=== PATIENT | female | born 1995 | race Caucasian/White ===

== ENCOUNTER 2020-01-12 15:01 | Emergency (ER) | payer SELFPAY ==
[2020-01-12 15:23] VITALS: BP 140/84; PULSE 85; RESP 14; TEMP 36.9; O2SAT 97; BMI 30.2
== END 2020-01-12 17:29 | disposition left against medical advice (07) ==
PROVIDERS: Emergency Provider Family Medicine
DX: Z53.21 Procedure and treatment not carried out due to patient leaving prior to being seen by health care provider (principal)
CPT/HCPCS: 99281

== ENCOUNTER 2020-01-12 22:06 | Emergency (ER) | payer SELFPAY ==
[2020-01-12 22:35] LABS: Basophils # 0.1 10^3/uL (0.0-0.1); Basophils % 0.3 %; Eosinophils % 0.1 %; Hematocrit 51.3 % (37.0-47.0); Hemoglobin 17.4 g/dL (11.5-15.3); Lymphocytes # 1.2 10^3/uL (0.8-4.8); Lymphocytes % 8.2 %; Mean Corpuscular HGB Conc 33.9 g/dL (30.0-36.0); Mean Corpuscular Hemoglobin 30.3 pg (28.0-34.0); Mean Corpuscular Volume 89.2 fL (81-99); Mean Platelet Volume 12.5 fL (7.4-10.4); Monocytes # 0.2 10^3/uL (0.2-0.9); Monocytes % 1.5 %; Neutrophils # 13.5 10^3/uL (1.8-7.7); Neutrophils % 89.5 %; Nucleated Red Blood Cells % 0 %; Platelet Count 260 10^3/cmm (130-400); Red Blood Count 5.75 10^6/uL (4.1-5.3); White Blood Count 15.1 10^3/uL (4.0-10.0)
[2020-01-12 22:47] VITALS: BP 157/94; PULSE 62; RESP 18; TEMP 36.4; O2SAT 97; BMI 30.1
[2020-01-12 22:57] LABS: Alanine Aminotransferase 38 U/L (0-33); Albumin Level 5.6 g/dL (3.5-5.2); Alkaline Phosphatase 71 IU/L (35-105); Aspartate Amino Transferase 24 U/L (0-32); Blood Urea Nitrogen 11 mg/dL (6-20); Calcium 11.1 mg/dL (8.5-10.5); Carbon Dioxide 23 mmol/L (22-29); Chloride 99 mmol/L (98-107); Creatinine Clr Calc Pharmacy 150.1169; Globulin 3.4 g/dL (1.3-4.6); Glomerular Filtration Rate 102.8 mL/min (90-130); Glucose 146 mg/dL (65-115); Lipase 14 U/L (13-60); Osmolality Calculated 289 mOsm/kg (285-295); Sodium 140 mmol/L (136-145); Total Bilirubin 1.6 mg/dL (0.15-1.2)
[2020-01-12 23:13] LABS: HCG, Serum Qual Negative (Negative)
--- NOTE | 2020-01-12 23:19 | CTR_ITS ---
PROCEDURE INFORMATION: Exam: CT Abdomen And Pelvis With Contrast Exam date and time: 01/12/2020 11:40 PM Age: 24 years old Clinical indication: Abdominal pain; Generalized; Prior surgery; Surgery type: Cholecystectomy; Additional info: Abd pain TECHNIQUE: Imaging protocol: Computed tomography of the abdomen and pelvis with intravenous contrast. Radiation optimization: All CT scans at this facility use at least one of these dose optimization techniques: automated exposure control; mA and/or kV adjustment per patient size (includes targeted exams where dose is matched to clinical indication); or iterative reconstruction. Contrast material: OMNI 300; Contrast volume: 95 ml; Contrast route: INTRAVENOUS (IV); COMPARISON: US gall bladder [id number] 11/14/2015 3:38 AM RADIATION DOSE METRICS: Total DLP (mGy-cm): 2095.14 FINDINGS: Lungs: Lung bases are clear. Liver: The liver is normal. Gallbladder and bile ducts: The gallbladder is absent. Pancreas: The pancreas is unremarkable. Spleen: The spleen is unremarkable. Adrenals: The adrenal glands are unremarkable. Kidneys and ureters: The kidneys are unremarkable. No hydronephrosis or stones. No ureteral dilation. Stomach and bowel: The stomach is unremarkable. The small bowel is nondilated. The colon is unremarkable. Appendix: The appendix is normal. Intraperitoneal space: There is no free air or significant intraperitoneal free fluid. Vasculature: The aorta is unremarkable. There is no aneurysm. Lymph nodes: There is no lymphadenopathy in the retroperitoneum, mesentery, pelvis or inguinal regions. Bladder: The urinary bladder is unremarkable. Reproductive: The uterus is unremarkable. There is no adnexal mass or large cyst. Bones/joints: Bones are unremarkable. Soft tissues: The abdominal wall is intact. CT/CT abdomen pelvis w con* [id number] IMPRESSION: No pathologic findings. Radiation Dose CTDIVOL = (mGy): DLP = 2095.14 (mGy-cm)
--- NOTE | 2020-01-12 23:28 | W.ED.ABDPA2 ---
HPI - Abdominal Pain General: Chief Complaint: Abdominal Pain Stated Complaint: abd pain, n/v Time Seen by Provider: 01/12/20 23:01 Source: patient Mode of arrival: ambulatory Limitations: no limitations History of Present Illness: HPI narrative: 24-year-old female who states she has a history of chronic abdominal pain over the last 3 years. Patient states that the pain today is worse than typical. She states it is mainly in her lower abdomen and rates it a 10 out of 10. She denies any fever or vomiting. She does not believe she is . MD elicited complaint: abdominal pain Onset (ago): hour(s) Pain Consistency: constant Location: Diffuse Severity: severe Relieving factors: nothing Associated Symptoms: Denies chills, dysuria and fever(s) Review of Systems Const: Denies: fever(s), chills, body aches or change in appetite Eyes: Denies: blurry vision or eye discomfort ENMT: Denies: throat pain or dental pain Card: Denies: chest pain Resp: Denies: dyspnea GI: Reports: abdominal pain : Denies: dysuria Musc: Denies: neck pain or back pain Skin/Breast: Denies: rash Neuro: Denies: headache(s) Psych: Denies: depression Eder/Lymph: Denies: easy bruising All/Imm: Denies: urticaria Physical Exam Const: COMMON NORMALS: patient oriented x3 and healthy appearing GENERAL APPEARANCE: in distress HENMT: COMMON NORMALS: normocephalic and atraumatic HEAD & SCALP: normocephalic and atraumatic Eye: COMMON NORMALS: Equal, round and reactive pupils present and EOMs intact bilaterally PUPIL: Yes Equal, round and reactive pupils present Neck/C-Spine: COMMON NORMALS: full ROM and supple Chest: COMMONS NORMALS: normal inspection of the chest and normal palpation of entire chest wall Resp: COMMON NORMALS: normal respiratory effort, No retractions, No use of accessory muscles and clear to auscultation bilaterally AUSCULTATION: clear to auscultation bilaterally Cardio: COMMON NORMALS: regular rate, regular rhythm and No murmurs present (Cardio) RATE: regular rate RHYTHM: regular rhythm GI: COMMON NORMALS: Normal to inspection, nondistended, normoactive bowel sounds present, Soft to palpation and no masses PALPATION: Yes Soft to palpation OTHER: Diffuse tenderness Extremity: COMMON NORMALS: normal to inspection and full ROM Neuro: COMMON NORMALS: patient oriented x3, moves all extremities and no focal motor deficits Psych: COMMON NORMALS: mental status grossly normal, Normal thought process present and cooperative THOUGHT PROCESS: Normal thought process present Skin: COMMON NORMALS: no rashes or lesions noted and no wounds GENERAL SKIN EXAM: no rashes or lesions noted Course Vital Signs: Vital signs: Vital Signs Temperature 97.5 F L 01/12/20 22:47 Pulse Rate 58 L 01/13/20 02:07 Respiratory Rate 16 01/13/20 02:07 Blood Pressure 124/72 01/13/20 02:07 Pulse Oximetry 98 01/13/20 02:07 MDM - Abdominal Pain MDM Narrative: Medical decision making narrative: Susana presents here with abdominal pain that is chronic in nature. Patient's CT scan and lab work here is normal. Patient's pain is much improved. She is stable for discharge and is to follow-up with primary care doctor in 3 to 5 days return if worsening. Patient prescribed Bentyl for home. Lab Data: Labs: Lab Results 01/12/20 01/12/20 01/12/20 Range/Units 22:18 22:18 22:18 WBC 15.1 H (4.0-10.0) 10^3/ uL RBC 5.75 H (4.1-5.3) 10^6/u L Hgb 17.4 H (11.5-15.3) g/dL Hct 51.3 H (37.0-47.0) % MCV 89.2 (81-99) fL MCH 30.3 (28.0-34.0) pg MCHC 33.9 (30.0-36.0) g/dL RDW 13.0 (12.1-15.1) % Plt Count 260 (130-400) 10^3/c mm MPV 12.5 H (7.4-10.4) fL Neut % (Auto) 89.5 % Lymph % (Auto) 8.2 % [place] % (Auto) 1.5 % Eos % (Auto) 0.1 % Baso % (Auto) 0.3 % Neut # (Auto) 13.5 H (1.8-7.7) 10^3/u L Lymph # (Auto) 1.2 (0.8-4.8) 10^3/u L [place] # (Auto) 0.2 (0.2-0.9) 10^3/u L Eos # (Auto) 0.0 (0.0-0.8) 10^3/u L Baso # (Auto) 0.1 (0.0-0.1) 10^3/u L Nucleated RBC % (a uto) 0 % Nucleated RBCs # 0.0 /100WBC Sodium 140 (136-145) mmol/L Potassium 4.0 (3.5-5.1) mmol/L Chloride 99 (98-107) mmol/L Carbon Dioxide 23 (22-29) mmol/L Anion Gap 22.0 H (5-19) BUN 11 (6-20) mg/dL Creatinine 0.7 (0.5-0.9) mg/dL GFR Calculation 102.8 (90-130) mL/min Glucose 146 H (65-115) mg/dL Calculated Osmolal ity 289 (285-295) mOsm/k g Calcium 11.1 H (8.5-10.5) mg/dL Total Bilirubin 1.6 H (0.15-1.2) mg/dL AST 24 (0-32) U/L ALT 38 H (0-33) U/L Alkaline Phosphata se 71 (35-105) IU/L Total Protein 9.0 H (6.6-8.7) g/dL Albumin 5.6 H (3.5-5.2) g/dL Globulin 3.4 (1.3-4.6) g/dL Lipase 14 (13-60) U/L HCG, Qual Negative (Negative) Imaging Data ^: CT Abd/Pel: Attestation: I personally reviewed and interpreted this imaging study as follows: Radiologist's impression: [address] [address] [address] Scan Report Signed Patient: Susana Doyle Unit #: [id number] : 1995 Age/Sex: 24 / F ADM Date: 01/12/20 Loc: ER Room/Bed: Attending Dr: Ordering Provider/Ordering MD: Gerardo Damico MD Date of Service: 01/12/20 Procedure(s): CT abdomen pelvis w con* [id number] Accession Number(s): [id number] Report Number: [id number] PROCEDURE INFORMATION: Exam: CT Abdomen And Pelvis With Contrast Exam date and time: 01/12/2020 11:40 PM Age: 24 years old Clinical indication: Abdominal pain; Generalized; Prior surgery; Surgery type: Cholecystectomy; Additional info: Abd pain TECHNIQUE: Imaging protocol: Computed tomography of the abdomen and pelvis with intravenous contrast. Radiation optimization: All CT scans at this facility use at least one of these dose optimization techniques: automated exposure control; mA and/or kV adjustment per patient size (includes targeted exams where dose is matched to clinical indication); or iterative reconstruction. Contrast material: OMNI 300; Contrast volume: 95 ml; Contrast route: INTRAVENOUS (IV); COMPARISON: US gall bladder [id number] 11/14/2015 3:38 AM RADIATION DOSE METRICS: Total DLP (mGy-cm): 2095.14 FINDINGS: Lungs: Lung bases are clear. Liver: The liver is normal. Gallbladder and bile ducts: The gallbladder is absent. Pancreas: The pancreas is unremarkable. Spleen: The spleen is unremarkable. Adrenals: The adrenal glands are unremarkable. Kidneys and ureters: The kidneys are unremarkable. No hydronephrosis or stones. No ureteral dilation. Stomach and bowel: The stomach is unremarkable. The small bowel is nondilated. The colon is unremarkable. Appendix: The appendix is normal. Intraperitoneal space: There is no free air or significant intraperitoneal free fluid. Vasculature: The aorta is unremarkable. There is no aneurysm. Lymph nodes: There is no lymphadenopathy in the retroperitoneum, mesentery, pelvis or inguinal regions. Bladder: The urinary bladder is unremarkable. Reproductive: The uterus is unremarkable. There is no adnexal mass or large cyst. Bones/joints: Bones are unremarkable. Soft tissues: The abdominal wall is intact. CT/CT abdomen pelvis w con* [id number] IMPRESSION: No pathologic findings. Discharge Plan Discharge Patient Disposition: Home, Self-Care Clinical Impression: Abdominal pain Qualifiers: Abdominal location: generalized Qualified Code(s): R10.84 - Generalized abdominal pain Condition: Stable Prescriptions: New ondansetron 4 mg tablet,disintegrating 4 mg PO Q6H PRN (Reason: nausea and vomiting) Qty: 14 RF: 0 dicyclomine 20 mg tablet 20 mg PO BID PRN (Reason: abdominal pain) Qty: 20 RF: 0 Discharge Orders: Discharge Order (Routine); Ordered 01/13/20 Ordered By: Gerardo Damico Discharge Diet: Advance as tolerated Discharge Activity: Resume usual activity Patient Instructions: Abdominal Pain (ED) Discharge Date/Time: 01/13/20 02:12 Coding Level of Care Code ED Quill Winder for Pranav Fwdeborah Exam Comprehensive
[2020-01-13] MEDS: metoclopramide 5 mg/mL SDV 2 mL 10 MG IVP (00:16)
[2020-01-13] MEDS: HYDROmorphone 1 mg/mL INJ 1 mL IVP (00:16)
[2020-01-13] MEDS: diphenhydrAMINE 50 mg/mL SDV 1mL IVP (00:16)
[2020-01-13 00:31] VITALS: BP 144/88; PULSE 52; RESP 16; O2SAT 96
[2020-01-13] MEDS: iohexol 300 mg/mL 100 mL Btl IV (00:38)
[2020-01-13 02:07] VITALS: BP 124/72; PULSE 58; RESP 16; O2SAT 98
== END 2020-01-13 02:12 | disposition home or self-care (01) ==
PROVIDERS: Emergency Provider Emergency Medicine
DX: R10.84 Generalized abdominal pain (principal)
CPT/HCPCS: 12345; 36415; 74177; 80053; 83690; 84703; 85025; 96374; 96375; 99283; J1170; J1200; J2765; Q9967

== ENCOUNTER 2020-01-15 07:39 | Emergency (ER) | payer SELFPAY ==
[2020-01-15 07:45] VITALS: BP 157/84; PULSE 57; RESP 20; TEMP 36.7; O2SAT 95; BMI 30.1
[2020-01-15 07:50] VITALS: BP 140/87; PULSE 53; RESP 18; O2SAT 95
--- NOTE | 2020-01-15 07:56 | ED_ITS ---
HPI - Abdominal Pain General: Chief Complaint: Abdominal Pain Stated Complaint: ABD PAIN Time Seen by Provider: 01/15/20 07:52 History of Present Illness: HPI narrative: Patient is a 24-year-old female comes to the ED with abdominal pain nausea and vomiting. Patient was seen here a couple days ago on January [address] A CT was performed and showed no acute findings and patient was discharged with a prescription for Bentyl and Zofran. Patient reports abdominal pain is not gotten better. Abdominal pain is all throughout the abdomen, but most of pain is in epigastric and RUQ. Pain is rated a 10 out of 10. Patient says she has been nauseous and vomiting multiple times a day for the 4 days. Denies any blood in the vomit. Patient states she is also had some diarrhea but denies any blood in the diarrhea. She says hot showers provide some relief. Patient says that she has been a daily marijuana smoker for years but just recently stopped about 4 days ago. Associated Symptoms: Reports diarrhea, nausea and vomiting; Denies chills, constipation, dysuria, fever(s), hematochezia and hematuria Related Data: Date of Last Menstrual Period: 01/14/20 Review of Systems Const: Denies: fever(s), chills or fatigue Eyes: Denies: change in vision or eye discomfort ENMT: Denies: throat pain, odynophagia, nasal discharge or nasal congestion Card: Denies: chest pain, palpitations, edema, swelling of feet/ankles, dyspnea on exertion or orthopnea Resp: Denies: dyspnea, productive cough or non-productive cough GI: Reports: abdominal pain, nausea, vomiting and diarrhea; Denies: constipation or hematochezia : Denies: flank pain, dysuria or hematuria Musc: Denies: neck pain, back pain or extremity swelling Skin/Breast: Denies: rash or new lesions Neuro: Denies: headache(s), numbness in extremities or weakness in extremities PFSH ED PFSH: Social History Smoking and tobacco status: current every day smoker Female Reproductive History: Date of last menstrual period: 01/14/20 Physical Exam Const: COMMON NORMALS: patient oriented x3 and alert GENERAL APPEARANCE: cooperative, in distress (Patient was crying and sobbing all throughout history and physical exam.) and well hydrated HENMT: COMMON NORMALS: normocephalic HEAD & SCALP: normocephalic MOUTH: Normal oral and palatal mucosa present (Mucous membranes are moist ) THROAT: posterior oropharynx normal and uvula midline Eye: COMMON NORMALS: Equal, round and reactive pupils present PUPIL: Yes Equal, round and reactive pupils present Neck/C-Spine: COMMON NORMALS: supple GENERAL: Yes normal visual inspection Resp: COMMON NORMALS: normal respiratory effort, No retractions, No use of accessory muscles and clear to auscultation bilaterally AUSCULTATION: clear to auscultation bilaterally Cardio: COMMON NORMALS: regular rate, regular rhythm, S1 normal heart sound present, S2 normal heart sound present, No gallops present (Cardio), No clicks present (Cardio), No murmurs present (Cardio) and Peripheral pulses 2+ throughout RATE: regular rate RHYTHM: regular rhythm HEART SOUNDS: S1 normal heart sound present and S2 normal heart sound present PERIPHERAL PULSES: Peripheral pulses 2+ throughout GI: COMMON NORMALS: Normal to inspection, nondistended, normoactive bowel sounds present, Soft to palpation and no masses PALPATION: Yes Soft to palpation and Yes Tenderness to palpation present (GI) Details: other (Mild tenderness throughout abdomen.) : COMMON NORMALS: Yes no CVA tenderness BLADDER/KIDNEY EXAM: Yes no CVA tenderness Back/Pelvis: COMMON NORMALS: no CVA tenderness Extremity: COMMON NORMALS: normal to inspection and no pedal edema Neuro: COMMON NORMALS: patient oriented x3 SENSORIUM/ORIENTATION: Yes alert GAIT: Yes Normal gait present Skin: COMMON NORMALS: no rashes or lesions noted GENERAL SKIN EXAM: no rashes or lesions noted and dry skin Course Reevaluation(s): Reevaluation #1: After IV fluids, Reglan, Benadryl and Dilaudid, patient symptoms greatly improved and she was ready for discharge. Patient requested PCP referral, since new in town. Vital Signs: Vital signs: Vital Signs Temperature 98.1 F 01/15/20 07:45 Pulse Rate 62 01/15/20 10:18 Respiratory Rate 16 01/15/20 10:18 Blood Pressure 109/58 01/15/20 10:18 Pulse Oximetry 96 01/15/20 10:18 MDM - Abdominal Pain MDM Narrative: Medical decision making narrative: Patient is a 24-year-old female comes to the ED with abdominal pain nausea and vomiting. Patient was seen here a couple days ago on January [address] was performed and showed no acute findings and patient was discharged with a prescription for Bentyl and Zofran. Patient reports abdominal pain is not gotten better. Abdominal pain is all throughout the abdomen, but most of pain is in epigastric and RUQ. Patient admits to be a chronic marijuana smoker and she says that some of her nausea and vomiting symptoms improved when she takes hot showers. White blood cell count-16, CMP and UA were unremarkable. Lipase 16 and hCG serum negative. Ultrasound abdomen RUQ showed no acute findings. Patient symptoms improved with IV fluids, Reglan and Dilaudid. Patient requested a PCP referral so I put in an order with case management. Patient told to continue taking previously prescribed medications and I also gave her an additional prescription for Zofran to take as needed once previous prescription runs out. Drink plenty of fluids and stay hydrated. I discussed with patient about cessation of marijuana to help reduce symptoms. Patient understood and agreed with plan. Lab Data: Attestation: I reviewed the patient's lab results. Labs: Lab Results 01/15/20 01/15/20 01/15/20 Range/Units 08:10 08:10 08:10 WBC 16.0 H (4.0-10.0) 10^3/ uL RBC 5.79 H (4.1-5.3) 10^6/u L Hgb 17.0 H (11.5-15.3) g/dL Hct 51.2 H (37.0-47.0) % MCV 88.4 (81-99) fL MCH 29.4 (28.0-34.0) pg MCHC 33.2 (30.0-36.0) g/dL RDW 12.6 (12.1-15.1) % Plt Count 242 (130-400) 10^3/c mm MPV 13.1 H (7.4-10.4) fL Neut % (Auto) 71.8 % Lymph % (Auto) 21.7 % [place] % (Auto) 5.4 % Eos % (Auto) 0.3 % Baso % (Auto) 0.4 % Neut # (Auto) 11.5 H (1.8-7.7) 10^3/u L Lymph # (Auto) 3.5 (0.8-4.8) 10^3/u L [place] # (Auto) 0.9 (0.2-0.9) 10^3/u L Eos # (Auto) 0.0 (0.0-0.8) 10^3/u L Baso # (Auto) 0.1 (0.0-0.1) 10^3/u L Nucleated RBC % (a uto) 0 % Nucleated RBCs # 0.0 /100WBC Sodium 135 L (136-145) mmol/L Potassium 3.2 L (3.5-5.1) mmol/L Chloride 95 L (98-107) mmol/L Carbon Dioxide 22 (22-29) mmol/L Anion Gap 21.2 H (5-19) BUN 18 (6-20) mg/dL Creatinine 0.7 (0.5-0.9) mg/dL GFR Calculation 102.8 (90-130) mL/min Glucose 128 H (65-115) mg/dL Calculated Osmolal ity 278 L (285-295) mOsm/k g Calcium 10.7 H (8.5-10.5) mg/dL Total Bilirubin 4.6 H (0.15-1.2) mg/dL AST 34 H (0-32) U/L ALT 39 H (0-33) U/L Alkaline Phosphata se 72 (35-105) IU/L Total Protein 8.4 (6.6-8.7) g/dL Albumin 5.3 H (3.5-5.2) g/dL Globulin 3.1 (1.3-4.6) g/dL Lipase 16 (13-60) U/L HCG, Qual Negative (Negative) Urine Color (Yellow) Urine Appearance (CLEAR) Urine pH (5-7) Ur Specific Gravit y (1.005-1.030) Urine Protein (Negative) Urine Glucose (UA) (Normal) Urine Ketones (Negative) Urine Blood (Negative) Urine Nitrate (Negative) Urine Bilirubin (NEGATIVE) Urine Urobilinogen (Negative) mg/dL Ur Leukocyte Padmini ase (Negative) Urine RBC (0-2) /hpf Urine WBC (0-5) /hpf Ur Squamous Epith Cells (0-5) Amorphous Sediment Urine Bacteria (NONE) 01/15/20 Range/Units 08:15 WBC (4.0-10.0) 10^3/ uL RBC (4.1-5.3) 10^6/u L Hgb (11.5-15.3) g/dL Hct (37.0-47.0) % MCV (81-99) fL MCH (28.0-34.0) pg MCHC (30.0-36.0) g/dL RDW (12.1-15.1) % Plt Count (130-400) 10^3/c mm MPV (7.4-10.4) fL Neut % (Auto) % Lymph % (Auto) % [place] % (Auto) % Eos % (Auto) % Baso % (Auto) % Neut # (Auto) (1.8-7.7) 10^3/u L Lymph # (Auto) (0.8-4.8) 10^3/u L [place] # (Auto) (0.2-0.9) 10^3/u L Eos # (Auto) (0.0-0.8) 10^3/u L Baso # (Auto) (0.0-0.1) 10^3/u L Nucleated RBC % (a uto) % Nucleated RBCs # /100WBC Sodium (136-145) mmol/L Potassium (3.5-5.1) mmol/L Chloride (98-107) mmol/L Carbon Dioxide (22-29) mmol/L Anion Gap (5-19) BUN (6-20) mg/dL Creatinine (0.5-0.9) mg/dL GFR Calculation (90-130) mL/min Glucose (65-115) mg/dL Calculated Osmolal ity (285-295) mOsm/k g Calcium (8.5-10.5) mg/dL Total Bilirubin (0.15-1.2) mg/dL AST (0-32) U/L ALT (0-33) U/L Alkaline Phosphata se (35-105) IU/L Total Protein (6.6-8.7) g/dL Albumin (3.5-5.2) g/dL Globulin (1.3-4.6) g/dL Lipase (13-60) U/L HCG, Qual (Negative) Urine Color Dark yellow (Yellow) Urine Appearance Hazy A (CLEAR) Urine pH 5 (5-7) Ur Specific Gravit y 1.020 (1.005-1.030) Urine Protein 1+ H (Negative) Urine Glucose (UA) Norm (Normal) Urine Ketones 1+ H (Negative) Urine Blood 2+ H (Negative) Urine Nitrate Negative (Negative) Urine Bilirubin 1+ H (NEGATIVE) Urine Urobilinogen 1 H (Negative) mg/dL Ur Leukocyte Padmini ase Negative (Negative) Urine RBC None (0-2) /hpf Urine WBC 0-4 H (0-5) /hpf Ur Squamous Epith Cells 25-40 H (0-5) Amorphous Sediment Not Reportable Urine Bacteria 3+ H (NONE) Imaging Data ^: US: Attestation: I personally reviewed and interpreted this imaging study as follows: Radiologist's impression: [address] [address] Ultrasound Report Signed Patient: Susana Zhong Unit #: [id number] : 1995 Age/Sex: 24 / F ADM Date: 01/15/20 Loc: ER Room/Bed: Attending Dr: Ordering Provider/Ordering MD: Jack Gunn Date of Service: 01/15/20 Procedure(s): US abdomen limited 27595 Accession Number(s): [id number] Report Number: [id number] WS: [id number] ULTRASOUND ABDOMEN LIMITED CLINICAL INFORMATION: RUQ and epigastric pain, n/v COMPARISON: None. FINDINGS: Liver Size: Normal. Craniocaudal length: 12.2 cm. Echogenicity: Normal. Surface nodularity: None. Mass (size and location): None. Bile ducts Intrahepatic ducts: Normal. Common bile duct diameter: 0.3 cm. Gallbladder Removed Pancreas Normal as visualized. Right kidney: Normal. Hydronephrosis: None. Size: 9.4 cm x 4.4 cm x 4.7 cm. Abdominal aorta and IVC Visualized portions are normal. Ascites: None. US/US abdomen limited [id number] IMPRESSION: 1. Cholecystectomy. 2. Ultrasound otherwise unremarkable. Dictated By: Riccardo Triplett MD Signed By: Riccardo Triplett MD Signed Date/Time: 01/15/2051 DD/ Discharge Plan Discharge Patient Disposition: Home, Self-Care Clinical Impression: Nausea & vomiting Qualifiers: Vomiting type: unspecified Vomiting Intractability: non-intractable Qualified Code(s): R11.2 - Nausea with vomiting, unspecified Abdominal pain Qualifiers: Abdominal location: upper abdomen, unspecified Qualified Code(s): R10.10 - Upper abdominal pain, unspecified Condition: Stable Prescriptions: New ondansetron 4 mg tablet,disintegrating 4 mg PO Q6H PRN (Reason: nausea and vomiting) Qty: 20 RF: 0 No Action ondansetron 4 mg tablet,disintegrating 4 mg PO Q6H PRN (Reason: nausea and vomiting) Qty: 14 RF: 0 dicyclomine 20 mg tablet 20 mg PO BID PRN (Reason: abdominal pain) Qty: 20 RF: 0 Zanaflex 4 mg Tablet 4 mg PO TID PRN (Reason: unknown) RF: 0 Protonix 40 mg Tablet,Delayed Release (Dr/Ec) 40 mg PO BID RF: 0 Ambien 10 mg Tablet 10 mg PO BEDTIME RF: 0 Discharge Orders: Discharge Order (Routine); Ordered 01/15/20 Ordered By: Jack Gunn Discharge Diet: Regular Discharge Activity: Increase activity as tolerated Patient Instructions: Acute Nausea and Vomiting (ED), Abdominal Pain (ED) Activity Restrictions/Additional Instructions: Follow-up with medical provider as directed. A primary care referral was made for you and case management should be contacting you about an appointment in the next several days. Take medications as prescribed. Return to the ER or your medical provider if condition worsens. Please read and understand discharge instructions. If any questions, please ask. Discharge Date/Time: 01/15/20 10:27 Coding Level of Care Code ED Emergency Preparedness Manager for Pranav Fwd Exam Comprehensive
[2020-01-15 08:14] VITALS: RESP 20
[2020-01-15] MEDS: HYDROmorphone 1 mg/mL INJ 1 mL IVP (08:14)
[2020-01-15] MEDS: diphenhydrAMINE 50 mg/mL SDV 1mL IVP (08:14)
[2020-01-15] MEDS: metoclopramide 5 mg/mL SDV 2 mL 10 MG IVP (08:14)
[2020-01-15] MEDS: sodium chloride 0.9% 1,000 ML 999 ML IV (08:19)
[2020-01-15] MEDS: lidocaine 2% viscous 15 ML, aluminum-mag hydrox-simethicon 30 ML, sucralfate oral liq 1 GM PO (08:22)
[2020-01-15 08:36] LABS: Basophils # 0.1 10^3/uL (0.0-0.1); Basophils % 0.4 %; Eosinophils % 0.3 %; Hematocrit 51.2 % (37.0-47.0); Lymphocytes # 3.5 10^3/uL (0.8-4.8); Lymphocytes % 21.7 %; Mean Corpuscular HGB Conc 33.2 g/dL (30.0-36.0); Mean Corpuscular Hemoglobin 29.4 pg (28.0-34.0); Mean Corpuscular Volume 88.4 fL (81-99); Mean Platelet Volume 13.1 fL (7.4-10.4); Monocytes # 0.9 10^3/uL (0.2-0.9); Monocytes % 5.4 %; Neutrophils # 11.5 10^3/uL (1.8-7.7); Neutrophils % 71.8 %; Nucleated Red Blood Cells % 0 %; Platelet Count 242 10^3/cmm (130-400); Red Blood Count 5.79 10^6/uL (4.1-5.3); Red Cell Distribution Width 12.6 % (12.1-15.1)
[2020-01-15 08:47] LABS: HCG, Serum Qual Negative (Negative)
[2020-01-15 08:53] LABS: Alanine Aminotransferase 39 U/L (0-33); Albumin Level 5.3 g/dL (3.5-5.2); Alkaline Phosphatase 72 IU/L (35-105); Anion Gap 21.2 (5-19); Aspartate Amino Transferase 34 U/L (0-32); Blood Urea Nitrogen 18 mg/dL (6-20); Calcium 10.7 mg/dL (8.5-10.5); Carbon Dioxide 22 mmol/L (22-29); Chloride 95 mmol/L (98-107); Creatinine Clr Calc Pharmacy 150.1169; Globulin 3.1 g/dL (1.3-4.6); Glomerular Filtration Rate 102.8 mL/min (90-130); Glucose 128 mg/dL (65-115); Lipase 16 U/L (13-60); Osmolality Calculated 278 mOsm/kg (285-295); Potassium 3.2 mmol/L (3.5-5.1); Sodium 135 mmol/L (136-145); Total Bilirubin 4.6 mg/dL (0.15-1.2); Total Protein 8.4 g/dL (6.6-8.7)
[2020-01-15 08:54] LABS: Bilirubin Urine 1+ (NEGATIVE); Blood Urine 2+ (Negative); Glucose Urine UA Norm (Normal); Ketones Urine 1+ (Negative); Leukocyte Esterase Urine Negative (Negative); Nitrate Urine Negative (Negative); Protein Urine 1+ (Negative); Urine Color Dark Yellow (Yellow); Urobilinogen Urine 1 mg/dL (Negative); pH Urine 5 (5-7)
[2020-01-15 08:55] LABS: Add Urine Microscopic? YES; Urine Appearance Hazy (CLEAR)
[2020-01-15 09:07] VITALS: BP 108/58; PULSE 67; RESP 16; O2SAT 95
[2020-01-15 09:08] LABS: Add Urine Culture? No; Bacteria Urine 3+; Squamous Epithelial Cell Urine 25-40 (0-5); WBC Urine 0-4 /hpf (0-5)
--- NOTE | 2020-01-15 09:13 | US_ITS ---
WS: [id number] ULTRASOUND ABDOMEN LIMITED CLINICAL INFORMATION: RUQ and epigastric pain, n/v COMPARISON: None. FINDINGS: Liver Size: Normal. Craniocaudal length: 12.2 cm. Echogenicity: Normal. Surface nodularity: None. Mass (size and location): None. Bile ducts Intrahepatic ducts: Normal. Common bile duct diameter: 0.3 cm. Gallbladder Removed Pancreas Normal as visualized. Right kidney: Normal. Hydronephrosis: None. Size: 9.4 cm x 4.4 cm x 4.7 cm. Abdominal aorta and IVC Visualized portions are normal. Ascites: None. US/US abdomen limited [id number] IMPRESSION: 1. Cholecystectomy. 2. Ultrasound otherwise unremarkable.
[2020-01-15] MEDS: ondansetron 2 mg/ML SDV 2 mL 4 MG IVP (10:12)
[2020-01-15] MEDS: potassium chloride ER 10 mEq Tablet 20 MEQ PO (10:12)
[2020-01-15 10:18] VITALS: BP 109/58; PULSE 62; RESP 16; O2SAT 96
--- NOTE | 2020-01-19 10:20 | DCPLANNER ---
Addendum entered by Dorota Chaparro 01/19/20 12:40: Patient called case maker back, stating that she did want to get established with a primary care physician. outreach manager called the office of PC MAINTENANCE TECHNICIAN, Eladia Wade, spoke with Angely. A follow up appointment was scheduled for Saturday, January 20, 2020 at 1:30 with Emily Wade. outreach manager called patient to inform patient of the scheduled appointment, was unable to speak with patient at this time, a voicemail was left for patient at this time. Original Note: outreach manager had message to speak with patient about getting established with a primary care physician. outreach manager called patient, unable to speak with patient at this time a voicemail was left for patient to return case briefer phone call.
--- NOTE | 2020-01-22 14:52 | DCPLANNER ---
Patient did not attend the appointment scheduled for 01.20.20 with Emily Wade.
== END 2020-01-15 10:27 | disposition home or self-care (01) ==
PROVIDERS: Emergency Provider Physician Assistant
DX: R10.10 Upper abdominal pain, unspecified (principal); R11.2 Nausea with vomiting, unspecified; F17.210 Nicotine dependence, cigarettes, uncomplicated
CPT/HCPCS: 12345; 76705; 80053; 81001; 81003; 83690; 84703; 85025; 96361; 96374; 96375; 99283; 99284; J1170; J1200; J2405; J2765; J7030

== ENCOUNTER → 2020-01-25 09:30 | Outpatient (BNVA) | payer SELFPAY | PROVIDERS: Visit Provider Nurse Practitioner Family | DX: N39.0 Urinary tract infection, site not specified (principal); D72.829 Elevated white blood cell count, unspecified; R53.83 Other fatigue; R82.71 Bacteriuria; K83.1 Obstruction of bile duct; G47.00 Insomnia, unspecified; F41.9 Anxiety disorder, unspecified; F32.9 Major depressive disorder, single episode, unspecified; Z78.9 Other specified health status; G44.229 Chronic tension-type headache, not intractable | CPT/HCPCS: 80053; 81001; 83690; 85025; 87491; 87591; 87661 ==

== ENCOUNTER 2020-03-27 18:40 | Emergency (ER) | payer SELFPAY ==
--- NOTE | 2020-03-27 19:10 | ED_ITS ---
HPI - Headache General: Chief Complaint: Headache Stated Complaint: severe headache/ nausea Time Seen by Provider: 03/27/20 19:10 Source: patient Mode of arrival: ambulatory Limitations: no limitations History of Present Illness: HPI Narrative: Patient is a 24-year-old female presents to ED today with complaints of a migraine headache. She states her headache started around 3:30 AM and has been constant since. She is describing the pain located to her posterior scalp which is consistent with her previous migraine headaches. She states her pain feels identical characteristically as her previous migraines although reports the severity as increased. She is having nausea with vomiting. No changes in vision. She is not having any neck pain/neck stiffness. She has not been running fevers. Patient does not take any prophylactic or abortive migraine medications. MD elicited complaint: headache and migraine Pertinent past history: migraines Onset (ago): hour(s) Location: occipital Context: occurred at rest Associated symptoms: Reports nausea and vomiting; Deny chest pain, confusion, fever(s), malaise or rash Review of Systems Const: Denies: fever(s), chills, body aches, fatigue or malaise Eyes: Denies: change in vision, blurry vision, photophobia, floaters or seeing flashes Card: Denies: chest pain Resp: Denies: dyspnea GI: Reports: nausea and vomiting; Denies: abdominal pain, diarrhea or change in bowel habits Musc: Denies: neck pain or back pain Skin/Breast: Denies: rash Neuro: Reports: headache(s); Denies: numbness in extremities, weakness in extremities, sensory changes, lack of coordination, dizziness, vertigo, confusion, Slurred speech present or seizure-like activity [facility] ED PFSH: Medical History (Updated 03/27/20 @ 20:26 by MILLIE Mcallister) Common bile duct (CBD) obstruction Family History (Updated 01/25/20 @ 13:09 by Sharonda Montes LPN) Grandmother Cancer Other Diabetes Social History (Updated 01/25/20 @ 13:09 by Sharonda Montes LPN) Smoking and tobacco status: current every day smoker Alcohol intake: never Lives independently: Yes Household members: spouse Marital status: Female Reproductive History: Date of last menstrual period: 01/14/20 Physical Exam Const: COMMON NORMALS: average body habitus, patient oriented x3, no limitations, healthy appearing, alert and well nourished GENERAL APPEARANCE: cooperative and in distress (appears uncomfortable; nauseous ) ORIENTATION/CONSCIOUSNESS: Yes oriented to person, Yes oriented to place and Yes oriented to time HENMT: COMMON NORMALS: normocephalic, atraumatic, hearing grossly normal bilaterally, EAC's normal and TM's normal bilaterally HEAD & SCALP: normal to inspection, normocephalic and atraumatic FACE & SINUS: normal facial exam and sinuses nontender EXTERNAL AUDITORY CANAL: EAC's normal TYMPANIC MEMBRANE: TM's normal bilaterally Eye: COMMON NORMALS: Equal, round and reactive pupils present and EOMs intact bilaterally GENERAL EYE: appearance normal, both eyes and all related structures PUPIL: Yes Equal, round and reactive pupils present Neck/C-Spine: COMMON NORMALS: full ROM, no lymphadenopathy and no meningeal signs GI: COMMON NORMALS: Normal to inspection, nondistended, normoactive bowel sounds present, Soft to palpation, non-tender, No hepatosplenomegaly present and no masses PALPATION: Yes Soft to palpation and Yes No hepatosplenomegaly present Neuro: JOHNNY COMA SCALE: document GCS findings Johnny coma scale eye opening: Spontaneous [place] coma scale verbal response: Orientated [place] coma scale motor response: Obey commands [place] coma scale total score: 15 COMMON NORMALS: patient oriented x3, CN's II-XII intact bilaterally, moves all extremities, no focal motor deficits and no sensory deficits noted SENSORIUM/ORIENTATION: Yes alert, Yes oriented to person, Yes oriented to place and Yes oriented to time MENINGEAL SIGNS: Yes no meningeal signs Skin: COMMON NORMALS: no rashes or lesions noted GENERAL SKIN EXAM: no rashes or lesions noted Course Reevaluation(s): Reevaluation #1: patient sleeping soundly; she states she feels much better and is ready to go home Vital Signs: Vital signs: Vital Signs Temperature 99.0 F 03/27/20 19:23 Pulse Rate 88 03/27/20 19:23 Respiratory Rate 20 H 03/27/20 19:23 Blood Pressure 137/82 03/27/20 19:23 Pulse Oximetry 98 03/27/20 19:23 Discharge Plan Discharge Patient Disposition: Home Clinical Impression: Headache, migraine Qualifiers: Migraine type: without aura Status migrainosus presence: without status migrainosus Intractability: not intractable Qualified Code(s): G43.009 - Migraine without aura, not intractable, without status migrainosus Condition: Stable Prescriptions: No Action Protonix 40 mg tablet,delayed release (DR/EC) 40 mg PO BID Qty: 60 RF: 3 fluoxetine 10 mg capsule 10 mg PO DAILY Qty: 49 RF: 0 naproxen 500 mg tablet 500 mg PO BID PRN (Reason: pain) Qty: 30 RF: 0 dicyclomine 20 mg tablet 20 mg PO BID PRN (Reason: abdominal pain) Qty: 60 RF: 0 doxycycline hyclate 100 mg capsule 100 mg PO BID 10 Days Qty: 20 RF: 0 ondansetron 4 mg tablet,disintegrating 4 mg PO Q6H PRN (Reason: nausea and vomiting) Qty: 14 RF: 0 Zanaflex 4 mg Tablet 4 mg PO TID PRN (Reason: unknown) RF: 0 Ambien 10 mg Tablet 10 mg PO BEDTIME RF: 0 ondansetron 4 mg tablet,disintegrating 4 mg PO Q6H PRN (Reason: nausea and vomiting) Qty: 20 RF: 0 Discharge Orders: Discharge Order (Routine); Ordered 03/27/20 Ordered By: Carmella Tinsley Patient Instructions: Headache - Migraine (Adult) Activity Restrictions/Additional Instructions: May return to the emergency department for worsening headache, visual changes, neck pain/neck stiffness, fevers greater than 100.4, worst headache of your life, or any other concerns you may have. Coding Level of Care Code ED [employer] Operator for Pranav Fwd Exam Detailed
[2020-03-27 19:13] VITALS: BP 137/82; PULSE 88; RESP 20; TEMP 37.2; O2SAT 97; BMI 29.2
[2020-03-27 19:23] VITALS: BP 137/82; PULSE 88; RESP 20; TEMP 37.2; O2SAT 98
[2020-03-27] MEDS: sodium chloride 0.9% 1,000 ML 999 ML IV (19:28)
[2020-03-27] MEDS: ketorolac 60 mg/2 mL INJ 30 MG IVP (19:29)
[2020-03-27] MEDS: ondansetron 2 mg/ML SDV 2 mL 4 MG IVP (19:29)
[2020-03-27] MEDS: diphenhydrAMINE 50 mg/mL SDV 1mL IVP (19:30)
[2020-03-27] MEDS: dexamethasone 10 mg/mL INJ 8 MG IV (19:30)
[2020-03-27 21:08] VITALS: BP 136/96; PULSE 84; RESP 14; TEMP 36.9; O2SAT 99
== END 2020-03-27 21:10 | disposition home or self-care (01) ==
PROVIDERS: Emergency Provider Physician Assistant
DX: G43.009 Migraine without aura, not intractable, without status migrainosus (principal); F17.210 Nicotine dependence, cigarettes, uncomplicated
CPT/HCPCS: 12345; 96361; 96374; 96375; 99283; J1100; J1200; J1885; J2405; J7030